=== PATIENT | female | born 1955 | race Caucasian/White ===

== ENCOUNTER → 2016-09-17 | Outpatient (CLI) | payer OTHER ==
[~2016-09-17] MED LIST: ZOLP10TA6 PO
--- NOTE | 2016-09-17 15:09 | DIAGNOSTIC IMAGING REPORT ---
CT OF THE ABDOMEN AND PELVIS WITH ORAL CONTRAST CT DOSE: 0.00 mGycm CLINICAL HISTORY: Abdominal pain and diarrhea. History of diverticulosis. TECHNIQUE: Axial images of the abdomen and pelvis were obtained without IV contrast. Oral contrast was administered. COMPARISON STUDY: Abdominal and pelvic ultrasound December 10, 2015. FINDINGS: Lung bases are clear. Evaluation of the abdomen and pelvis is suboptimal on this unenhanced exam. Unenhanced images of liver, spleen, adrenal glands, kidneys and pancreas are normal. There is no biliary or pancreatic ductal dilatation. There is no hydronephrosis. There is no evidence for a bowel obstruction. There is sigmoid diverticulosis without evidence for acute diverticulitis. There is no ascites or lymphadenopathy. No renal, ureteral or bladder calculi are present. Note is made of a 5.2 x 4.7 cm water attenuation right ovarian lesion. This is minimally increased in size since ultrasound of December 10, 2015. Note is made of a 1.2 cm sclerotic lesion within the right aspect of the L2 vertebral body. No additional osseous lesions are present. IMPRESSION: 1. No acute process within the abdomen or pelvis on unenhanced exam. 2. Sigmoid diverticulosis without evidence for acute diverticulitis. 3. 5.2 cm water attenuation right adnexal lesion which likely reflects an ovarian cyst. Minimal peripheral calcification. Allowing for differences in technique, this is likely slightly increased in size since exam of December 10, 2015. This lesion is indeterminate and a follow-up pelvic ultrasound in 6 months is recommended. 4. 1.2 cm sclerotic lesion within the right aspect of the L2 vertebral body. This lesion is indeterminate although statistically benign in the absence of known malignancy. Electronically signed by: Víctor Gilmore M.D. 09/17/2016 3:08 PM Dictated Date/Time: 09/17/2016 1:44 PM
== END | disposition home or self-care (01) ==
LOC: C.CTS 12:58
PROVIDERS: ATTEND Nurse Practitioner Adult Health
DX: R10.819 Abdominal tenderness, unspecified site (principal); K57.30 Diverticulosis of large intestine without perforation or abscess without bleeding; R19.09 Other intra-abdominal and pelvic swelling, mass and lump; M53.86 Other specified dorsopathies, lumbar region

== ENCOUNTER → 2016-10-26 | Outpatient (CLI) | payer OTHER | END | disposition home or self-care (01) | LOC: C.LAB1850 10:23 | PROVIDERS: ATTEND Obstetrics & Gynecology | DX: N83.209 Unspecified ovarian cyst, unspecified side (principal) ==

== ENCOUNTER → 2017-07-09 | Outpatient (CLI) | payer OTHER ==
--- NOTE | 2017-07-12 07:59 | MAMMOGRAPHY REPORT ---
BILATERAL DIGITAL SCREENING MAMMOGRAM TOMOSYNTHESIS WITH CAD: 07/09/2017 TECHNIQUE: Breast tomosynthesis in addition to standard 2D mammography was performed. Current study was also evaluated with a Computer Aided Detection (CAD) system. COMPARISON: Comparison is made to exams dated: 07/07/2016 mammogram, 07/04/2015 mammogram, 07/02/2014 mammogram, 06/29/2013 mammogram, 06/21/2012 mammogram, and 06/17/2011 mammogram - [facility]. BREAST COMPOSITION: There are scattered areas of fibroglandular density in both breasts. FINDINGS: No suspicious masses, calcifications, or areas of architectural distortion are noted in ei ther breast. There has been no significant interval change compared to prior exams. Small fluctuatin g circumscribed benign-appearing masses are again noted bilaterally, which are considered benign give n the multiplicity and bilaterality and likely represent cysts. Bilateral benign appearing calcifica tions are also not significantly changed. IMPRESSION: ACR BI-RADS CATEGORY 2: BENIGN There is no mammographic evidence of malignancy. A 1 year screening mammogram is recommended. The pa tient will receive written notification of the results. Approximately 10% of breast cancers are not detected with mammography. A negative mammographic report should not delay biopsy if a clinically suggestive mass is present. Mayra Diamond M.D. /:07/09/2017 16:55:39 Topography Technician: Eulalia PATEL)(M), [facility] letter sent: Normal 1/2 BI-RADS Code: ACR BI-RADS Category 2: Benign
== END | disposition home or self-care (01) ==
LOC: C.MAMM 08:38
PROVIDERS: ATTEND Internal Medicine
DX: Z12.31 Encounter for screening mammogram for malignant neoplasm of breast (principal)